=== PATIENT | female | born 1960 | race Caucasian/White ===

== ENCOUNTER 2024-04-25 09:29 | Day surgery (SDC) | payer OTHER ==
[~2024-04-25] VITALS: Ht 162.6 cm; Wt 83.9 kg
[2024-04-25] MEDS ORDERED: MIDAZOLAM 2 MG/2 ML VIAL ONE (11:07)
[2024-04-25] MEDS ORDERED: fentaNYL citrate 0.05 MG/ML VIAL ONE (11:07)
[2024-04-25] MEDS: fentaNYL citrate 0.05 MG/ML VIAL IVP ONE (12:43)
[2024-04-25] MEDS: LIDOCAINE 2% 100 MG/5 ML UJET TP ONE (12:50)
== END 2024-04-25 13:55 | disposition home or self-care (01) ==
LOC: MDS 09:29 → MMU 09:32 → MDS 13:55
PROVIDERS: ATTEND Internal Medicine Gastroenterology
DX: R19.5 Other fecal abnormalities (principal); K57.30 Diverticulosis of large intestine without perforation or abscess without bleeding; K64.4 Residual hemorrhoidal skin tags; I10 Essential (primary) hypertension; Z90.710 Acquired absence of both cervix and uterus; Z79.899 Other long term (current) drug therapy; Z98.890 Other specified postprocedural states
CPT/HCPCS: 45378; J3010; J2250